=== PATIENT | male | born 1950 | race Caucasian/White ===

== ENCOUNTER 2021-12-02 09:01 | Emergency (ER) | payer BC ==
[2021-12-02 09:15] VITALS: TEMP 99.5; BMI 21.3
[2021-12-02] MEDS ORDERED: SOTROVIMAB 500 MG in SODIUM CHLORIDE 100 ML IVPB ONE (10:45)
[2021-12-02 13:10] VITALS: BP 135/76; PULSE 95
== END 2021-12-02 13:20 | disposition home or self-care (01) ==
LOC: JCOVINFU 09:01
DX: U07.1 COVID-19 (principal)
CPT/HCPCS: 99284-25; M0247; Q0247

== ENCOUNTER 2022-12-26 06:42 | Day surgery (SDC) | payer BC ==
[2022-12-24 11:06] VITALS: BMI 21.7
[2022-12-26] MEDS: CIPROFLOXACIN 0.3% EYE DROPS 5 ML BOTTLE ONE ×3 (07:20→07:30)
[2022-12-26] MEDS: TROPICAMIDE 1% OPHTH SOLN 15 ML BOTTLE ONE ×3 (07:20→07:30)
[2022-12-26] MEDS: CYCLOPENTOLATE 2% OPHTH SOLN 2 ML BOTTLE ONE ×3 (07:20→07:30)
[2022-12-26] MEDS: PHENYLEPHRINE 2.5% OPTHALMIC DROP 2ML BOTTLE ONE ×3 (07:20→07:30)
[2022-12-26] MEDS ORDERED: MIDAZOLAM HCL 2 MG/2 ML SINGLE DOSE VIAL ONE (07:24)
[2022-12-26] MEDS ORDERED: LIDOCAINE HCL/PF 1% SDV 5ML VIAL ONE (07:37)
[2022-12-26] MEDS ORDERED: EPINEPHrine/PF 1 MG/1 ML (1:1,000) AMPULE ONE (07:37)
[2022-12-26] MEDS ORDERED: TETRACAINE 0.5% OPHTH SOLN 2 ML BOTTLE ONE (07:37)
[2022-12-26] MEDS ORDERED: BSS (NA/CA/MG/K) BALANCED SALT SOLUTION OPHTH SOLN 15 ML BOTTLE ONE (07:37)
[2022-12-26] MEDS ORDERED: NEO/POLYMYX B SULF/DEXAMETH OPHTHALMIC 5ML BOTTLE ONE (07:38)
[2022-12-26] MEDS ORDERED: CARBACHOL 0.01% INTRA-OCULAR 1.5 ML VIAL ONE (07:38)
[2022-12-26 09:01] VITALS: RESP 18; TEMP 98.1
[2022-12-26 09:48] VITALS: BP 133/79; PULSE 86
== END 2022-12-26 09:30 | disposition home or self-care (01) ==
LOC: FASU 06:42
PROVIDERS: ATTEND Ophthalmology
PROC: 08RK3JZ Replacement of Left Lens with Synthetic Substitute, Percutaneous Approach (ICD-10-PCS; principal; 2022-12-26 08:16)
DX: H26.8 Other specified cataract (principal)
CPT/HCPCS: 66984; V2632; 82962

== ENCOUNTER 2023-01-09 08:49 | Day surgery (SDC) | payer BC ==
[2023-01-08 14:55] VITALS: BMI 21.7
[2023-01-09] MEDS ORDERED: CARBACHOL 0.01% INTRA-OCULAR 1.5 ML VIAL ONE (09:07)
[2023-01-09] MEDS ORDERED: BSS (NA/CA/MG/K) BALANCED SALT SOLUTION OPHTH SOLN 15 ML BOTTLE ONE (09:07)
[2023-01-09] MEDS ORDERED: EPINEPHrine/PF 1 MG/1 ML (1:1,000) AMPULE ONE (09:07)
[2023-01-09] MEDS ORDERED: NEO/POLYMYX B SULF/DEXAMETH OPHTHALMIC 5ML BOTTLE ONE (09:07)
[2023-01-09] MEDS ORDERED: LIDOCAINE 1% P/F 10 MG/ML VIAL ONE (09:07)
[2023-01-09] MEDS: TROPICAMIDE 1% OPHTH SOLN 15 ML BOTTLE ONE ×3 (09:15→09:25)
[2023-01-09] MEDS: CYCLOPENTOLATE 2% OPHTH SOLN 2 ML BOTTLE ONE ×3 (09:15→09:25)
[2023-01-09] MEDS: PHENYLEPHRINE 2.5% OPTHALMIC DROP 2ML BOTTLE ONE ×2 (09:15→09:20)
[2023-01-09] MEDS: CIPROFLOXACIN 0.3% EYE DROPS 5 ML BOTTLE ONE ×3 (09:15→09:25)
[2023-01-09] MEDS ORDERED: MIDAZOLAM HCL 2 MG/2 ML SINGLE DOSE VIAL ONE (10:32)
[2023-01-09] MEDS ORDERED: PHENYLEPHRINE/KETOROLAC 4 ML VIAL IO ONE (11:03)
[2023-01-09 11:36] VITALS: RESP 18; TEMP 97.4
[2023-01-09 11:52] VITALS: BP 140/78; PULSE 82
== END 2023-01-09 12:15 | disposition home or self-care (01) ==
LOC: FASU 08:49
PROVIDERS: ATTEND Ophthalmology
PROC: 08RJ3JZ Replacement of Right Lens with Synthetic Substitute, Percutaneous Approach (ICD-10-PCS; principal; 2023-01-09 10:54)
DX: H26.8 Other specified cataract (principal)
CPT/HCPCS: 66984; V2632; 82962; J1097